=== PATIENT | female | born 1940 | race Caucasian/White ===

== ENCOUNTER 2022-09-05 11:39 | Outpatient (CLI) | payer MEDICARE | END 2022-09-05 11:40 | disposition home or self-care (01) | LOC: CT 11:39 | PROVIDERS: ATTEND Radiology Radiation Oncology | DX: C11.1 Malignant neoplasm of posterior wall of nasopharynx (principal); C09.1 Malignant neoplasm of tonsillar pillar (anterior) (posterior); H74.8X2 Other specified disorders of left middle ear and mastoid; H68.102 Unspecified obstruction of Eustachian tube, left ear; M86.8X8 Other osteomyelitis, other site; R59.0 Localized enlarged lymph nodes | CPT/HCPCS: 70491 ==

== ENCOUNTER 2022-09-10 17:57 | Emergency (ER) | payer OTHER ==
[2022-09-10 18:21] LABS: #Lymphocytes 1.3 thou/uL (1.20-3.40); #Monocytes 0.8 thou/uL (0.11-0.59); #Neutrophils 6.5 thou/uL (1.40-6.50); %Basophils 0.5 % (0.0-1.0); %Eosinophils 0.5 % (0.0-10.0); %Lymphocytes 15.3 % (21.0-51.0); %Monocytes 9.6 % (0.0-10.0); %Neutrophils 74.1 % (42.0-75.0); Hemoglobin 12.1 g/dL (12.0-16.0); Mean Corpuscular HGB CONC 32.9 g/dL (32.0-36.0); Mean Corpuscular Hemoglobin 32.1 pg (27.0-31.0); Mean Corpuscular Volume 97.7 fl (78.0-98.0); Mean Platelet Volume 7.7 fL (7.4-10.4); Platelet Count 276 10x3/uL (130-400); Red Blood Cell (RBC) Count 3.77 mill/uL (4.20-5.40); White Blood Cell (WBC) Count 8.7 10x3/uL (4.8-10.8)
[2022-09-10 18:43] LABS: ALT (SGPT) 17 U/L (8-55); AST (SGOT) 16 U/L (5-34); Albumin 4.2 g/dL (3.4-4.8); Alkaline Phosphatase 55 U/L (40-110); Anion Gap 14 mmol/L (10-20); BUN (Urea Nitrogen) 32 mg/dL (9.8-20.1); Bilirubin, Total 0.5 mg/dL (0.2-1.2); Calc. Creatinine Clearance 0 mL/min (70-130); Calcium 10.2 mg/dL (7.8-10.44); Carbon Dioxide 26 mmol/L (23-31); Chloride 98 mmol/L (98-107); Estimated GFR 44; Globulin 3.6 g/dL (2.4-3.5); Glucose 144 mg/dL (83-110); Potassium 3.4 mmol/L (3.5-5.1); Protein, Total 7.8 g/dL (5.8-8.1); Sodium 135 mmol/L (136-145)
[2022-09-10] MEDS ORDERED: Potassium Chloride 20 MEQ TAB ONE ×2 (20:32→20:33)
== END 2022-09-10 22:32 | disposition home or self-care (01) ==
LOC: ERS 17:57
DX: R53.83 Other fatigue (principal)
CPT/HCPCS: 36415; 71045; 80053; 84484; 85025; 93005

== ENCOUNTER 2022-09-18 12:06 | Outpatient (CLI) | payer MEDICARE | END 2022-09-18 12:07 | disposition home or self-care (01) | LOC: MRI 12:06 → SCSMRI 12:07 | PROVIDERS: ATTEND Radiology Radiation Oncology | DX: C11.9 Malignant neoplasm of nasopharynx, unspecified (principal) | CPT/HCPCS: 70553 ==

== ENCOUNTER 2022-10-02 11:17 | Outpatient (CLI) | payer MEDICARE, OTHER ==
[2022-10-02 12:19] LABS: #Basophils 0.1 10x3/uL (0.0-0.2); #Eosinphils 0.1 10x3/uL (0.0-0.5); #Monocytes 0.8 10x3/uL (0.0-1.1); #Neutrophils 8.7 10x3/uL (1.5-8.4); %Basophils 0.5 % (0.0-2.0); %Eosinophils 1.2 % (0.0-6.0); %Lymphocytes 10.9 % (18.0-47.0); %Monocytes 7.4 % (0.0-10.0); %Neutrophils 79.6 % (40.0-75.0); Hemoglobin 10.2 g/dL (12.0-15.5); Mean Corpuscular HGB CONC 33.7 g/dL (32.0-36.0); Mean Corpuscular Hemoglobin 31.8 pg (27.0-33.0); Mean Corpuscular Volume 94.4 fl (81.6-98.3); Mean Platelet Volume 10.1 fl (7.4-10.4); Platelet Count 348 10x3/uL (150-450); Red Blood Cell (RBC) Count 3.21 10x6/uL (3.90-5.03)
[2022-10-02 12:45] LABS: Anion Gap 16 mmol/L (10-20); BUN (Urea Nitrogen) 28 mg/dL (9.8-20.1); Calc. Creatinine Clearance 0 mL/min (70-130); Calcium 10.1 mg/dL (7.8-10.44); Carbon Dioxide 25 mmol/L (23-31); Chloride 98 mmol/L (98-107); Estimated GFR 44; Glucose 201 mg/dL (83-110); Potassium 4.2 mmol/L (3.5-5.1); Sodium 135 mmol/L (136-145)
== END 2022-10-02 11:18 | disposition home or self-care (01) ==
LOC: LABBT 11:17
PROVIDERS: ATTEND Surgery
DX: Z01.812 Encounter for preprocedural laboratory examination (principal); C11.2 Malignant neoplasm of lateral wall of nasopharynx
CPT/HCPCS: 80048; 85025

== ENCOUNTER 2022-10-04 10:48 | Observation (INO) | payer MEDICARE, OTHER ==
[2022-10-04] MEDS ORDERED: Lidocaine 2% PF 5 ML VIAL ONE (13:02)
[2022-10-04] MEDS ORDERED: Bupivacaine/Epinephrine 0.25% 30 ML VIAL ONE (13:02)
[2022-10-04] MEDS ORDERED: Propofol 500 MG/50 ML VIAL ONE (13:06)
[2022-10-04] MEDS ORDERED: FENTANYL 50 MCG/ML 1 ML VIAL ONE ×2 (13:09→13:10)
[2022-10-04] MEDS ORDERED: CEFAZOLIN 2 GM VIAL ONE (13:15)
[2022-10-04] MEDS ORDERED: Sodium Chloride 0.9% 100 ML ONE (13:15)
[2022-10-04] MEDS ORDERED: Lidocaine 1% PF 5 ML VIAL ONE (13:25)
[2022-10-04] MEDS ORDERED: Dexamethasone 20 MG/5 ML VIAL ONE (13:25)
[2022-10-04] MEDS ORDERED: PROPOFOL 200 MG/20 ML VIAL ONE (13:25)
[2022-10-04] MEDS ORDERED: Rocuronium Bromide 10 MG/ML (10ML VIAL) ONE (13:25)
[2022-10-04] MEDS ORDERED: Ondansetron PF 4 MG/2 ML Vial ONE (13:25)
[2022-10-04] MEDS ORDERED: Esmolol 100 MG/10 ML VIAL ONE (13:25)
[2022-10-04] MEDS ORDERED: Albumin 5% 250 ML ONE (13:39)
[2022-10-04] MEDS ORDERED: SUGAMMADEX SODIUM 200 MG/2 ML VIAL ONE (13:39)
[2022-10-04] MEDS ORDERED: Hydrocodone-Acetamin 15 ML UDCUP PO PRN (14:12)
[2022-10-04] MEDS ORDERED: Morphine 4 MG/ML VIAL SLOW IVP PRN (14:12)
[2022-10-04] MEDS ORDERED: Ibuprofen 200 MG TAB PO PRN (14:12)
[2022-10-04] MEDS ORDERED: Ondansetron PF 4 MG/2 ML Vial IVP PRN (14:12)
[2022-10-04] MEDS ORDERED: HumaLOG 300 UNITS/3 ML VIAL SC PRN (14:12)
[2022-10-04] MEDS ORDERED: Promethazine HCl 25 MG/ML VIAL IM PRN (14:12)
[2022-10-04] MEDS ORDERED: Dextrose 5% in Water 1,000 ML IV PRN (14:12)
[2022-10-04] MEDS ORDERED: hydrALAZINE 20 MG/ML VIAL SLOW IVP PRN (14:12)
[2022-10-04] MEDS ORDERED: Acetaminophen 325 MG TAB PO PRN (14:12)
[2022-10-04] MEDS ORDERED: Dextrose 50% Abboject 50 ML SYRINGE SLOW IVP PRN ×2 (14:12)
[2022-10-04] MEDS ORDERED: Fentanyl 100 MCG/2 ML VIAL ONE (15:06)
[2022-10-04] MEDS: D5 1/2 NS w/20 mEq KCL 1,000 ML IV SCH (16:42)
[2022-10-04 18:42] VITALS: BMI 22.2
[2022-10-05] MEDS: D5 1/2 NS w/20 mEq KCL 1,000 ML IV SCH (05:30)
[2022-10-05] MEDS ORDERED: metFORMIN 500 MG TAB PO SCH (08:00)
[2022-10-05] MEDS ORDERED: Mirtazapine 15 MG TAB PO SCH (09:00)
[2022-10-05] MEDS ORDERED: Famotidine 20 MG TAB PO SCH (09:00)
[2022-10-05] MEDS ORDERED: Famotidine/PF 20 mg/2ml Vial SLOW IVP SCH (09:00)
[2022-10-05] MEDS ORDERED: Losartan 25 MG TAB PO SCH (09:00)
[2022-10-05 10:30] VITALS: BP 114/69; TEMP 97.7
[2022-10-05] MEDS ORDERED: Rosuvastatin 20 MG TAB PO SCH (21:00)
== END 2022-10-05 10:08 | disposition home or self-care (01) ==
LOC: SDC 10:48 → T4-A 16:19
PROVIDERS: ADMIT Surgery; ATTEND Surgery
PROC: 0JH60WZ Insertion of Totally Implantable Vascular Access Device into Chest Subcutaneous Tissue and Fascia, Open Approach (ICD-10-PCS; principal; 2022-10-04)
PROC: 02HV33Z Insertion of Infusion Device into Superior Vena Cava, Percutaneous Approach (ICD-10-PCS; 2022-10-04)
PROC: 0DH63UZ Insertion of Feeding Device into Stomach, Percutaneous Approach (ICD-10-PCS; 2022-10-04)
DX: C11.2 Malignant neoplasm of lateral wall of nasopharynx (principal); Z79.84 Long term (current) use of oral hypoglycemic drugs; Z79.899 Other long term (current) drug therapy
CPT/HCPCS: 36561; 43246; 71045; 82962 ×2; C1788; J3010; P9045; 36416; J1100; J1642; J1815; J2001; J2405; J2704; J3480; J3490

== ENCOUNTER 2022-11-08 09:44 | Day surgery (SDC) | payer OTHER ==
[2022-11-08] MEDS ORDERED: diphenhydrAMINE 25 MG CAP PO SCH (10:30)
[2022-11-08] MEDS ORDERED: Acetaminophen 500 MG TAB PO SCH (10:30)
[2022-11-08] MEDS ORDERED: diphenhydrAMINE 25 MG CAP ONE (10:54)
[2022-11-08] MEDS ORDERED: Acetaminophen 500 MG TAB ONE (10:54)
[2022-11-08 16:51] VITALS: BP 157/69; TEMP 97.9
== END 2022-11-08 16:29 | disposition home or self-care (01) ==
LOC: ONC/OP 09:44
PROVIDERS: ATTEND Internal Medicine Hematology & Oncology
PROC: 30233N1 Transfusion of Nonautologous Red Blood Cells into Peripheral Vein, Percutaneous Approach (ICD-10-PCS; principal; 2022-11-08)
DX: D64.9 Anemia, unspecified (principal); D69.6 Thrombocytopenia, unspecified
CPT/HCPCS: 36430; 80053; 82248; 83615; 83735; 84100; 84550; 86850; 86900; 86901; J1642; P9016

== ENCOUNTER 2022-12-11 11:26 | Day surgery (SDC) | payer OTHER ==
[2022-12-11] MEDS ORDERED: Acetaminophen 500 MG TAB PO SCH (11:45)
[2022-12-11] MEDS ORDERED: diphenhydrAMINE 25 MG CAP PO SCH (11:45)
[2022-12-11] MEDS ORDERED: Acetaminophen 500 MG TAB ONE (12:25)
[2022-12-11] MEDS ORDERED: diphenhydrAMINE 25 MG CAP ONE (12:25)
[2022-12-11 12:56] VITALS: TEMP 97.7
[2022-12-11 16:34] VITALS: BP 184/76
== END 2022-12-11 15:22 | disposition home or self-care (01) ==
LOC: ONC/OP 11:26
PROVIDERS: ATTEND Internal Medicine Hematology & Oncology
PROC: 30233N1 Transfusion of Nonautologous Red Blood Cells into Peripheral Vein, Percutaneous Approach (ICD-10-PCS; principal; 2022-12-11)
DX: D64.9 Anemia, unspecified (principal); D69.6 Thrombocytopenia, unspecified
CPT/HCPCS: 36430; 80053; 82248; 83615; 83735; 84100; 84550; 86850; 86900; 86901; J1642; P9016

== ENCOUNTER 2022-12-19 13:18 | Outpatient (CLI) | payer OTHER | END 2022-12-19 13:19 | disposition home or self-care (01) | LOC: PET 13:18 | PROVIDERS: ATTEND Internal Medicine Hematology & Oncology | DX: C11.2 Malignant neoplasm of lateral wall of nasopharynx (principal) | CPT/HCPCS: 70553; 78815; A9552 ==

== ENCOUNTER 2023-01-05 12:41 | Outpatient (CLI) | payer OTHER ==
[~2023-01-05 12:41] MED LIST: Iopamidol 370 76% 100 ML VIAL ONE
== END 2023-01-05 12:42 | disposition home or self-care (01) ==
LOC: BICMAMMO 12:41
PROVIDERS: ATTEND Internal Medicine Hematology & Oncology
DX: C11.2 Malignant neoplasm of lateral wall of nasopharynx (principal); E11.9 Type 2 diabetes mellitus without complications; R92.8 Other abnormal and inconclusive findings on diagnostic imaging of breast; K57.30 Diverticulosis of large intestine without perforation or abscess without bleeding
CPT/HCPCS: 74170; 76642; 77066; G0279; Q9967

== ENCOUNTER 2023-02-09 10:02 | Day surgery (SDC) | payer OTHER ==
[2023-02-09] MEDS ORDERED: Acetaminophen 500 MG TAB PO SCH (10:30)
[2023-02-09] MEDS ORDERED: diphenhydrAMINE 25 MG CAP PO SCH (10:30)
[2023-02-09] MEDS ORDERED: diphenhydrAMINE 25 MG CAP ONE (10:35)
[2023-02-09] MEDS ORDERED: Acetaminophen 500 MG TAB ONE (10:35)
[2023-02-09] MEDS ORDERED: cloNIDine 0.1 MG TAB ONE (15:17)
[2023-02-09] MEDS ORDERED: cloNIDine 0.1 MG TAB PO SCH (15:30)
[2023-02-09 16:57] VITALS: BP 143/70; TEMP 97.8
== END 2023-02-09 16:57 | disposition home or self-care (01) ==
LOC: ONC/OP 10:02
PROVIDERS: ATTEND Internal Medicine Hematology & Oncology
PROC: 30233N1 Transfusion of Nonautologous Red Blood Cells into Peripheral Vein, Percutaneous Approach (ICD-10-PCS; principal; 2023-02-09)
DX: D64.9 Anemia, unspecified (principal); D69.6 Thrombocytopenia, unspecified
CPT/HCPCS: 36430; 86850; 86900; 86901; 86920; P9016

== ENCOUNTER 2023-05-18 10:55 | Outpatient (CLI) | payer OTHER ==
[~2023-05-18 10:55] MED LIST changes: -Iopamidol 370 76% 100 ML VIAL ONE; +Magnevist 469MG/ML 20 ML VIAL ONE
== END 2023-05-18 10:56 | disposition home or self-care (01) ==
LOC: PET 10:55
PROVIDERS: ATTEND Internal Medicine Hematology & Oncology
DX: C11.9 Malignant neoplasm of nasopharynx, unspecified (principal); R91.1 Solitary pulmonary nodule; J34.89 Other specified disorders of nose and nasal sinuses
CPT/HCPCS: 70553; 78815; A9552; A9579

== ENCOUNTER 2023-07-20 08:40 | Outpatient (CLI) | payer OTHER ==
[2023-07-20] MEDS ORDERED: Iopamidol 370 76% 100 ML VIAL ONE (09:57)
== END 2023-07-20 08:41 | disposition home or self-care (01) ==
LOC: CT 08:40
PROVIDERS: ATTEND Internal Medicine Hematology & Oncology
DX: C11.2 Malignant neoplasm of lateral wall of nasopharynx (principal); R91.1 Solitary pulmonary nodule; J98.4 Other disorders of lung
CPT/HCPCS: 71260; 82565; Q9967

== ENCOUNTER 2023-08-28 12:33 | Outpatient (CLI) | payer OTHER | END 2023-08-28 12:34 | disposition home or self-care (01) | LOC: MRI 12:33 | PROVIDERS: ATTEND Radiology Radiation Oncology | DX: C11.1 Malignant neoplasm of posterior wall of nasopharynx (principal); J39.2 Other diseases of pharynx | CPT/HCPCS: 70491; 70553; 82565 ==

== ENCOUNTER 2023-11-02 07:53 | Outpatient (CLI) | payer OTHER | END 2023-11-02 07:54 | disposition home or self-care (01) | LOC: CT 07:53 → BICCT 07:54 | PROVIDERS: ATTEND Internal Medicine Hematology & Oncology | DX: C11.2 Malignant neoplasm of lateral wall of nasopharynx (principal); R91.1 Solitary pulmonary nodule | CPT/HCPCS: 71250; 82565 ==